=== PATIENT | female | born 1935 | race Native Hawaiian/Other Pacific Islander ===

== ENCOUNTER 2020-07-18 14:08 | Outpatient (CLI) | payer OTHER ==
[2020-07-18 14:15] VITALS: BP 132/44; TEMP 98.5
[2020-07-18 14:46] LABS: PLATELET COUNT 267 K/uL (152-353)
[2020-07-18 14:55] LABS: POTASSIUM 4.5 mmol/L (3.6-5.2)
== END 2020-07-18 16:40 | disposition home or self-care (01) ==
LOC: INF 14:08
PROVIDERS: ATTEND Internal Medicine
DX: U07.1 COVID-19 (principal)
CPT/HCPCS: 36591; 80053; 85027; 96365